=== PATIENT | female | born 1960 | race Hispanic/Latino ===

== ENCOUNTER 2018-12-15 09:19 | Outpatient (CLI) | payer OTHER ==
--- NOTE | 2018-12-15 10:28 | ULT ---
RIGHT UPPER QUADRANT ULTRASOUND: Date: 12/15/18 COMPARISON: None. HISTORY: Right upper quadrant pain, history of cholelithiasis. TECHNIQUE: Multiplanar Pelaez scale sonographic imaging of the right upper quadrant obtained. FINDINGS: Pancreas is not well evaluated secondary to obscuration by bowel gas. No focal liver lesion or intrahepatic biliary dilatation is noted. Echogenic shadowing stones are noted within the gallbladder lumen. The feed research technician reports a negative Roe's sign. There is no gallbladder wall thickening or pericholecystic fluid. The common bile duct measures approximately 2.0 mm, within normal limits. The right kidney measures 11.2 cm in craniocaudal dimension and demonstrates no stone, hydronephrosis , or mass. IMPRESSION: Cholelithiasis with no sonographic evidence of cholecystitis or biliary dilatation. POS: [facility]
== END 2018-12-15 09:20 | disposition home or self-care (01) ==
LOC: MADULT 09:19
PROVIDERS: ATTEND Family Medicine
DX: Z87.19 Personal history of other diseases of the digestive system (principal); K80.20 Calculus of gallbladder without cholecystitis without obstruction
CPT/HCPCS: 76705

== ENCOUNTER 2019-05-17 02:01 | Emergency (ER) | payer OTHER ==
[2019-05-17] MEDS ORDERED: HYDROcodone/Acetaminophen 5/325 mg Tablet ONE (02:31)
[2019-05-17] MEDS ORDERED: Ibuprofen 800 MG TAB ONE (02:31)
== END 2019-05-17 02:35 | disposition home or self-care (01) ==
LOC: MADERS 02:01
DX: R10.12 Left upper quadrant pain (principal); E11.9 Type 2 diabetes mellitus without complications; E78.5 Hyperlipidemia, unspecified; E78.00 Pure hypercholesterolemia, unspecified; I10 Essential (primary) hypertension
CPT/HCPCS: 99283

== ENCOUNTER 2020-04-14 17:26 | Outpatient (CLI) | payer OTHER | END 2020-04-14 17:27 | disposition home or self-care (01) | LOC: MADLAB 17:26 | PROVIDERS: ATTEND Family Medicine | DX: N30.01 Acute cystitis with hematuria (principal) | CPT/HCPCS: 87077; 87086; 87186 ==

== ENCOUNTER 2021-08-25 08:54 | Outpatient (CLI) | payer OTHER ==
[2021-08-25 09:19] LABS: Anion Gap 16 mmol/L (10-20); BUN (Urea Nitrogen) 30 mg/dL (9.8-20.1); Calc. Creatinine Clearance 0 mL/min (70-130); Calcium 9.6 mg/dL (7.8-10.44); Carbon Dioxide 25 mmol/L (22-29); Chloride 103 mmol/L (98-107); Glucose 194 mg/dL (70-105); Sodium 139 mmol/L (136-145)
== END 2021-08-25 08:55 | disposition home or self-care (01) ==
LOC: MADLAB 08:54
PROVIDERS: ATTEND Family Medicine
DX: E87.5 Hyperkalemia (principal)
CPT/HCPCS: 36415; 80048

== ENCOUNTER 2021-12-22 09:19 | Emergency (ER) | payer OTHER ==
[2021-12-22] MEDS ORDERED: Bupivacaine HCl 0.5%/Epinephrine 1:200,000/PF 30 ml Vial ONE (09:46)
== END 2021-12-22 10:14 | disposition home or self-care (01) ==
LOC: MADERS 09:19
DX: K04.7 Periapical abscess without sinus (principal); I10 Essential (primary) hypertension; E11.9 Type 2 diabetes mellitus without complications; E78.00 Pure hypercholesterolemia, unspecified
CPT/HCPCS: 64400

== ENCOUNTER 2022-03-01 18:34 | Emergency (ER) | payer OTHER ==
[2022-03-01] MEDS ORDERED: traMADol HCl 50 MG TAB ONE (19:21)
[2022-03-01] MEDS ORDERED: Cephalexin 500 MG CAP ONE (19:21)
== END 2022-03-01 19:37 | disposition home or self-care (01) ==
LOC: MADERS 18:34
DX: K04.7 Periapical abscess without sinus (principal); K21.9 Gastro-esophageal reflux disease without esophagitis; E11.9 Type 2 diabetes mellitus without complications; E78.00 Pure hypercholesterolemia, unspecified; I10 Essential (primary) hypertension; Z79.899 Other long term (current) drug therapy
CPT/HCPCS: 99282